=== PATIENT | female | born 1980 | race Caucasian/White ===

== ENCOUNTER 2016-11-08 05:18 | Emergency (ER) | payer MEDICAID, OTHER ==
[~2016-11-08] VITALS: Ht 172.7 cm; Wt 70.5 kg
[~2016-11-08 05:18] MED LIST: CYCL-36 PO; HYDR-3533 PO; ZOFR4TAB3 SL
[2016-11-08 05:19] VITALS: BP 138/81; PULSE 119; RESP 28; TEMP 99; O2SAT 98
[2016-11-08 05:25] VITALS: O2SAT 99
[2016-11-08] MEDS ORDERED: SODIUM CHLOR 0.9% 1000 ML INJ 1,000 ML IV ONE (05:30)
[2016-11-08] MEDS ORDERED: KETOROLAC TROMETHAMINE 30 MG/ML (IVP) VIAL IV PUSH ONE (05:30)
[2016-11-08] MEDS ORDERED: ONDANSETRON HCL 4 MG/2 ML VIAL IV ONE (05:30)
--- NOTE | 2016-11-08 05:30 | PD ---
HPI Chief Complaint: Abdominal Pain Time Seen by Provider: 05:23 Travel History International Travel<30 days: No Contact w/Intl Traveler<30days: No Traveled to known affect area: No History of Present Illness HPI The patient is a 36 year old female who presents to the [facility] emergency department with a history of left-sided flank pain and left lower quadrant abdominal pain that began suddenly and awoke her from sound sleep approximately 3 hours prior to arrival. The patient reports that the pain is sharp in character. She reports that the pain is constant. She reports having difficulty urinating since the onset. She denies having any dysuria, hematuria , urinary urgency, or frequency prior to the onset. She denies having any known fevers or chills. She reports that she last moved her bowels today. She denies having any blood in her stool or black or tarry stools. She does have a remote history of a kidney stone at 20 years of age. Her last menstrual cycle was approximately one month ago. She is a . On review of systems, the patient denies any cough, congestion, neck pain, chest pain, shortness of breath , vomiting, diarrhea, or neurologic symptoms. [facility] Past Medical History Narrative Medical The patient's past medical history is significant for kidney stones times one at 20 years of age. Medical History: Denies Significant Hx Diminished Hearing: No Headaches: Yes Kidney Stones: Yes Migraines: Yes Tetanus Vaccination: Unknown Influenza Vaccination: No ?: Unknown LMP: 10/09/16 : 3 Para: 1 : 2 Past Surgical History Narrative Surgical The patient's past surgical history is reportedly none. Surgical History: No Previous Surgery Social History Alcohol Use: Yes (OCCASIONALLY) Tobacco Use: No Substance Use: No Allergies-Medications (Allergen,Severity, Reaction): Coded Allergies: Codeine (Verified Allergy, Severe, SWELLING, 11/16/14) Sulfa (Verified Allergy, Severe, swelling, 11/16/14) Reported Meds & Prescriptions Reported Meds & Active Scripts Active Lortab (Hydrocodone-Acetaminophen) 5-325 Mg Tab 1 Tab PO Q6H PRN Ibuprofen 600 Mg Tab 600 Mg PO Q8H PRN Review of Systems Except as stated in HPI: all other systems reviewed are Neg General / Constitutional: No: Fever Eyes: No: Visual changes HENT: No: Headaches Cardiovascular: No: Chest Pain or Discomfort Respiratory: No: Shortness of Breath Gastrointestinal: Positive: Nausea, Abdominal Pain, No: Vomiting, Diarrhea, Hematemesis, Hematochezia, Changes in Bowel Habits, Indigestion, Loss of Appetite Genitourinary: Positive: Hesitancy, Flank Pain (left flank pain), No: Urgency , Frequency, Dysuria Musculoskeletal: Positive: Myalgias, No: Pain Skin: No Rash Neurologic: No: Weakness Psychiatric: No: Depression Endocrine: No: Polydipsia Hematologic/Lymphatic: No: Easy Bruising Physical Exam Narrative General: The patient is well-developed well-nourished female who appears uncomfortable on examination, tearful. Head and Neck exam: Head is normocephalic atraumatic. Eyes: EOMI, pupils are equal round and reactive to light. Nose: Midline septum with pink mucous membranes Mouth: Dentition unremarkable. Moist mucus membranes. Posterior oropharynx is not erythematous. No tonsillar hypertrophy. Uvula midline. Airway patent. Neck: No palpable lymphadenopathy. No nuchal rigidity. No thyromegaly. Cardiovascular: Sinus tachycardia in the 1 teens without murmurs, gallops, or rubs. No pulse deficit to the extremities and simultaneous auscultation and palpation of her radial artery. Lungs: Clear to auscultation bilaterally. No wheezes, rhonchi, or rales. Abdomen: Soft, with tenderness on palpation of the left lower quadrant of the abdomen. No other tenderness on palpation of the other quadrants of the abdomen. No guarding, rebound, or rigidity. No tenderness on palpation of McBurney's point. Normal bowel sounds are audible. Negative [place] sign. Extremities: No clubbing, cyanosis, or edema. 2+ pulses in all 4 extremities. No calf tenderness on palpation. Back: No spinous process tenderness to palpation. Left-sided CVA tenderness on palpation is noted. Neurologic Exam: Grossly nonfocal. Skin Exam: No rash noted. Intact skin that is warm and dry. Data Data Last Documented VS Vital Signs Date Time Temp Pulse Resp B/P Pulse Ox O2 Delivery O2 Flow Rate FiO2 11/08/16 05:25 99 Room Air 11/08/16 05:19 99.0 119 28 138/81 Orders Complete Blood Count With Diff (11/08/16 05:23) Comprehensive Metabolic Panel (11/08/16 05:23) C-Reactive Protein (Crp) (11/08/16 05:23) Lipase (11/08/16 05:23) Urinalysis - C+S If Indicated (11/08/16 05:23) Ct Abd/Pel W/O Iv Contrast (11/08/16 05:23) Iv Access Insert/Monitor (11/08/16 05:23) Ecg Monitoring (11/08/16 05:23) Oximetry (11/08/16 05:23) Ed Urine Pregnancytest Poc (11/08/16 05:23) Sodium Chlor 0.9% 1000 Ml Inj (Ns 1000 M (11/08/16 05:30) Ondansetron Inj (Zofran Inj) (11/08/16 05:30) Ketorolac Inj (Toradol Inj) (11/08/16 05:30) Mandatory Outpatient Referral (11/08/16 06:26) Urine Culture (11/08/16 06:15) Ciprofloxacin (Cipro) (11/08/16 07:15) Labs Laboratory Tests Test 11/08/16 11/08/16 05:25 06:15 White Blood Count 12.5 TH/MM3 Red Blood Count 4.34 MIL/MM3 Hemoglobin 12.3 GM/DL Hematocrit 36.0 % Mean Corpuscular Volume 82.9 FL Mean Corpuscular Hemoglobin 28.4 PG Mean Corpuscular Hemoglobin 34.2 % Concent Red Cell Distribution Width 13.0 % Platelet Count 284 TH/MM3 Mean Platelet Volume 6.7 FL Neutrophils (%) (Auto) 74.4 % Lymphocytes (%) (Auto) 17.9 % Monocytes (%) (Auto) 6.4 % Eosinophils (%) (Auto) 0.9 % Basophils (%) (Auto) 0.4 % Neutrophils # (Auto) 9.3 TH/MM3 Lymphocytes # (Auto) 2.2 TH/MM3 Monocytes # (Auto) 0.8 TH/MM3 Eosinophils # (Auto) 0.1 TH/MM3 Basophils # (Auto) 0.1 TH/MM3 CBC Comment DIFF FINAL Differential Comment Sodium Level 139 MEQ/L Potassium Level 4.4 MEQ/L Chloride Level 105 MEQ/L Carbon Dioxide Level 28.8 MEQ/L Anion Gap 5 MEQ/L Blood Urea Nitrogen 10 MG/DL Creatinine 0.89 MG/DL Estimat Glomerular Filtration 73 ML/MIN Rate Random Glucose 80 MG/DL Calcium Level 8.8 MG/DL Total Bilirubin 0.3 MG/DL Aspartate Amino Transf 17 U/L (AST/SGOT) Alanine Aminotransferase 16 U/L (ALT/SGPT) Alkaline Phosphatase 58 U/L C-Reactive Protein LESS THAN 0.29 MG/DL Total Protein 7.8 GM/DL Albumin 3.6 GM/DL Lipase 91 U/L Urine Color LIGHT-YELLOW Urine Turbidity CLEAR Urine pH 6.5 Urine Specific [place] 1.010 Urine Protein NEG mg/dL Urine Glucose (UA) NEG mg/dL Urine Ketones NEG mg/dL Urine Occult Blood MOD Urine Nitrite NEG Urine Bilirubin NEG Urine Urobilinogen LESS THAN 2.0 MG/DL Urine Leukocyte Esterase MOD Urine RBC 3 /hpf Urine WBC 9 /hpf Urine Squamous Epithelial 1 /hpf Cells Urine Bacteria MOD /hpf Urine Mucus FEW /lpf Microscopic Urinalysis Comment CULTURE INDICATED MDM Medical Decision Making Medical Screen Exam Complete: Yes Emergency Medical Condition: Yes Medical Record Reviewed: Yes Interpretation(s) Vital Signs Date Time Temp Pulse Resp B/P Pulse Ox O2 Delivery O2 Flow Rate FiO2 11/08/16 05:25 99 Room Air 11/08/16 05:19 99.0 119 28 138/81 98 Differential Diagnosis Muscle strain, versus kidney stone, versus pyelonephritis, versus diverticulitis , versus ectopic Narrative Course During the course of the patients emergency department visit, the patients history, examination, and differential diagnosis were reviewed with the patient. The patient had IV access obtained and blood work sent for analysis. The patient was placed on a wrapper layer and examiner soft work with oximetry and blood pressure monitoring. A CT scan of the abdomen and pelvis was ordered without IV contrast to evaluate for possible kidney stone. A bedside test was ordered. The patient's test is negative. The patient was initially provided normal saline 1 L IV fluid bolus, Zofran 4 mg IV, Toradol 15 mg IV. The patients laboratory studies were reviewed and remarkable for a white count of 12.5, hemoglobin 12.3, platelets 284 with 74.4 neutrophils, CMP is remarkable for a GFR 73, C-reactive protein is less than 0.29, lipase 91. Radiology studies were reviewed and remarkable for a CT scan of the abdomen and pelvis that shows 2 tiny stones one tiny 3 mm nonobstructing right kidney stone , 2 mm nonobstructing left kidney stone. No hydronephrosis, no other acute abnormality. The patient will be given the name of the urologist on-call for follow-up, Dr. Kellogg. The patient is instructed to stay well hydrated daily to prevent recurrence of kidney stones. She is instructed to drink at least 8 glasses of water daily. Urinalysis revealed moderate occult blood, moderate leukocyte Estrace, 3 RBCs, 9 wbc's, 1 squamous epithelial cell, moderate bacteria. Given the patient's symptoms including left flank pain the patient was given ciprofloxacin 500 mg by mouth 1. The patient will be discharged home on Cipro. The patient is resting comfortably and feels better, is alert and in no distress. The patients results and examination findings were discussed with the patient. The repeat examination is unremarkable and benign. The history, exam, diagnostic testing, and current condition do not suggest any significant pathology to warrant further testing, continued ED treatment, admission, or surgical evaluation at this point. The vital signs have been stable. The patient does not have uncontrollable pain, intractable vomiting, or other significant symptoms. The patient's condition is stable and appropriate for discharge. The patient will pursue further outpatient evaluation with a primary care physician or other designated or consulting physician as indicated in the discharge instructions. The patient expressed understanding and was agreeable with this plan. Diagnosis Primary Impression: Abdominal pain Qualified Code: R10.32 - Left lower quadrant pain Additional Impressions: Acute left flank pain Pyelonephritis Referrals: Cody Kellogg MD 1 week Patient Instructions: General Instructions, Kidney Infection (ED), Kidney Stones (ED) Med/Other Pt SpecificInfo: Prescription(s) given Scripts Ciprofloxacin (Cipro)500 Mg [id number] Mg PO BID 13 Days Ref 0 Prov:Rebeca Fink MD 11/08/16 Hydrocodone-Acetaminophen (Lortab)5-325 Mg Tab1 Tab PO Q6H PRN (PAIN SCALE 5 TO 10) #9 TAB Ref 0 Prov:Rebeca Fink MD 11/08/16 Ibuprofen 600 Mg Wax140 Mg PO Q8H PRN (PAIN SCALE 1 TO 4) #12 TAB Ref 0 Prov:Rebeca Fink MD 11/08/16 Disposition: 01 DISCHARGE HOME Condition: Stable Rebeca Fink MD Nov 08, 2016 05:30
[2016-11-08 05:38] LABS: AUTOMATED NEUTROPHIL # 9.3 TH/MM3 (1.8-7.7); BASOPHIL # 0.1 TH/MM3 (0-0.2); BASOPHIL % 0.4 % (0.0-2.0); EOSINOPHIL # 0.1 TH/MM3 (0-0.4); EOSINOPHIL % 0.9 % (0.0-4.0); HEMO FLAGS DIFF FINAL; LYMPH % 17.9 % (9.0-44.0); LYMPHOCYTE # 2.2 TH/MM3 (1.0-4.8); MEAN CELL VOLUME 82.9 FL (80.0-100.0); MEAN CORPUSCULAR HEMOGLOBIN 28.4 PG (27.0-34.0); MEAN CORPUSCULAR HGB CONC 34.2 % (32.0-36.0); MONO % 6.4 % (0.0-8.0); NEUT % 74.4 % (16.0-70.0); PLATELET COUNT 284 TH/MM3 (150-450); RED BLOOD COUNT 4.34 MIL/MM3 (4.00-5.30); WHITE BLOOD COUNT 12.5 TH/MM3 (4.0-11.0)
[2016-11-08 05:57] LABS: ALT (GPT) 16 U/L (10-53); ANION GAP 5 MEQ/L (5-15); AST (GOT) 17 U/L (15-37); BICARBONATE 28.8 MEQ/L (21.0-32.0); BLOOD UREA NITROGEN 10 MG/DL (7-18); CHLORIDE 105 MEQ/L (98-107); GLOMERULAR FILTRATION RATE 73 ML/MIN (>89); POTASSIUM 4.4 MEQ/L (3.5-5.1); SODIUM (NA) 139 MEQ/L (136-145)
[2016-11-08 05:59] LABS: ALKALINE PHOSPHATASE 58 U/L (45-117); TOTAL BILIRUBIN ADULT 0.3 MG/DL (0.2-1.0)
--- NOTE | 2016-11-08 06:12 | RADRPT ---
EXAM DATE/TIME: 11/08/2016 05:58 [place] COMPARISON: No previous studies available for comparison. INDICATIONS : Left sided abdominal pain radiating to groin. ORAL CONTRAST: No oral contrast ingested. RADIATION DOSE: 5.48 CTDIvol (mGy) MEDICAL HISTORY : Renal calculi. SURGICAL HISTORY : None. ENCOUNTER: Initial ACUITY: 1 day PAIN SCALE: 8/10 LOCATION: Left abdomen TECHNIQUE: Volumetric scanning of the abdomen and pelvis was performed. Using automated exposure control and ad justment of the mA and/or kV according to patient size, radiation dose was kept as low as reasonably achievable to obtain optimal diagnostic quality images. DICOM format image data is available electro nically for review and comparison. The lack of IV contrast limits the diagnosis for certain organ pa thology. FINDINGS: LOWER LUNGS: The visualized lower lungs are clear. LIVER: Homogeneous density without lesion. There is no dilation of the biliary tree. No calcified gallston es. SPLEEN: Normal size without lesion. PANCREAS: Within normal limits. KIDNEYS: Normal in size and shape. There is no mass or hydronephrosis. There is a tiny 3 mm stone lower pole right kidney not causing obstruction. There is a tiny 2 mm stone mid pole left kidney not causing obs truction. Ureters are nondilated. ADRENAL GLANDS: Within normal limits. VASCULAR: There is no aortic aneurysm. BOWEL/MESENTERY: The stomach, small bowel, and colon demonstrate no acute abnormality. There is no free intraperitone al air or fluid. The appendix is unremarkable. No inflammatory changes. There is stool throughout the colon. ABDOMINAL WALL: Within normal limits. RETROPERITONEUM: There is no lymphadenopathy. BLADDER: No wall thickening or mass. There are multiple calcified phleboliths deep in the pelvis. REPRODUCTIVE: Within normal limits. INGUINAL: There is no lymphadenopathy or hernia. MUSCULOSKELETAL: Within normal limits for patient age. CONCLUSION: 1. Tiny 3 mm nonobstructing right kidney stone 2. Tiny 2 mm nonobstructing left kidney stone 3. No evidence of hydronephrosis. Jason Trinh MD on November 08, 2016 at 6:06 Board Certified Radiologist. This report was verified electronically.
[2016-11-08] MEDS ORDERED: HYDR-3533 PO (06:24)
[2016-11-08] MEDS ORDERED: IBUP-232 PO (06:24)
[2016-11-08 07:01] LABS: BACTERIA, URINE MOD /hpf; BLOOD, URINE MOD (NEG); COMMENT (UR) CULTURE INDICATED; CULTURE IF INDICATED CULTURE INDICATED; GLUCOSE,URINE NEG (NEG); KETONE, URINE NEG (NEG); MUCUS URINE FEW /lpf (OCC); NITRITE,URINE NEG (NEG); PH, URINE 6.5 (5.0-8.5); SQUAMOUS EPITHELIAL CELL URINE 1 /hpf (0-5); URINE COLOR LIGHT-YELLOW (YELLW/STRAW)
[2016-11-08] MEDS ORDERED: CIPR-9 PO (07:05)
[2016-11-08] MEDS ORDERED: CIPROFLOXACIN 500 MG TAB PO ONE (07:15)
== END 2016-11-08 07:43 | disposition home or self-care (01) ==
LOC: NEPE 05:18
DX: N12 Tubulo-interstitial nephritis, not specified as acute or chronic (principal); B96.20 Unspecified Escherichia coli [E. coli] as the cause of diseases classified elsewhere
CPT/HCPCS: 74176; 80053; 81001; 83690; 84703; 85025; 86140; 87077; 87086; 87186; 96361; 96374; 96375; 99285; J1885; J2405; J7030